=== PATIENT | male | born 1980 | race Caucasian/White ===

== ENCOUNTER 2018-02-01 07:30 | Inpatient (IN) ==
[~2018-02-01 07:30] MED LIST: ACETAMINOPHEN 500 MG TABLET PO ONE; DEXAMETHASONE 4 MG/ML INJECTION IVP ONE; FAMOTIDINE PB 20 MG/50 ML BAG IV ONE; LIDOCAINE 1% (10mg/ml) 2mL INJ PF SDV ID ONE; MELOXICAM 15 MG TABLET PO ONE; METOCLOPRAMIDE 10mg/2ml INJECTION IVP ONE; ONDANSETRON 4 MG/2 ML INJECTION IVP ONE; TRANEXAMIC ACID 1,000 MG in NS 100 ML IV ONE
[2018-02-01] MEDS ORDERED: EPINEPHrine PF 0.25 MG, BUPIVACAINE 0.25% PF 30 ML, KETOROLAC INJ 60 MG in NS 30 ML OPSITE ONE (08:00)
[2018-02-01 08:11] VITALS: BMI 34.3
[2018-02-01] MEDS ORDERED: CEFAZOLIN 1 G INJECTION IVP ONE (08:12)
[2018-02-01] MEDS: NOZIN NASAL SWAB NAS SCH ×3 (08:34→08:44)
[2018-02-01] MEDS: LR 1,000 ML IV SCH ×2 (08:35→12:01)
[2018-02-01] MEDS ORDERED: MIDAZOLAM 2mg/2ml INJECTION ONE (08:55)
[2018-02-01] MEDS ORDERED: FentaNYL 250 MCG/5 ML INJECTION ONE (08:55)
[2018-02-01] MEDS ORDERED: LIDOCAINE 2% (100mg/5mL) 5ml PF SDV ONE (08:58)
[2018-02-01] MEDS ORDERED: BUPIVACAINE 0.5% (5mg/ml) PF 30ml INJ SDV ONE (08:58)
[2018-02-01] MEDS ORDERED: PROPOFOL 20 ML ONE (09:23)
--- NOTE | 2018-02-01 09:47 | Anesthesia Preoperative Report ---
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 Proposed Procedure: Right knee hemiarthroplasty NPO Since Date: 02/01/18 NPO Since Time: 00:00 Allergies/Adverse Reactions: Allergies Allergy/AdvReac Type Severity Reaction Status Date / Time No Known Allergies Allergy Unknown Verified 02/01/18 08:25 - Vital Signs Vital Signs: Temperature 97.4 F 02/01/18 08:10 Pulse Rate 85 02/01/18 08:27 Respiratory Rate 15 02/01/18 08:10 Blood Pressure 139/90 H 02/01/18 08:10 Pulse Oximetry 97 02/01/18 08:10 Height and Weight: Height 1.93 m Weight 128 kg Body Mass Index 34.3 - Medications Inpatient Medications: Current Medications Epinephrine HCl 0.25 mg/Bupivacaine HCl 30 ml/Ketorolac Tromethamine 60 mg/ Sodium Chloride 62.25 mls @ 1 mls/hr OPSITE INTRAOP ONE PRN Reason: Protocol Stop: 02/03/18 22:14 Lactated Ringer's (Lactated Ringers) 1,000 mls @ 50 mls/hr IV .Q20H [facility] Last Admin: 02/01/18 08:35 Dose: 50 mls/hr Isopropyl Alcohol (Nozin Nasal Swab) 1 each MARIBEL Q1M ROXANNE Stop: 02/01/18 10:48 Last Admin: 02/01/18 08:44 Dose: 1 each Sodium Chloride (Iv Flush) 10 - 80 ml IV PRN PRN PRN Reason: Flushing Home Medications: Home Medications Medication Instructions Recorded Confirmed Type Lisinopril [Prinivil] 10 mg PO DAILY 01/25/18 02/01/18 History HydroCHLOROthiazide [Microzide] 1 cap PO WB 02/01/18 02/01/18 History Is Patient on Beta Kristopher?: No - Medical History Respiratory: Reports: Other (Smoker/Vaper) DENIES: Sleep Apnea Cardiovascular: Reports: Hypertension DENIES: Abnormal EKG, Angina, Arrhythmia, Congestive Heart Failure, Coronary Artery Disease, Heart Murmur, Hypotension, Myocardial Infarction, Rheumatic Fever, Valvular Heart Disease, Other Gastrointestional: Reports: Other (constipation) Neuro/Musculoskeletal: Reports: HX.MS.OSAR (BILAT KNEES) Renal/Endocrine: DENIES: Diabetes Mellitus Type 1, Diabetes Mellitus Type 2, Renal Failure, Dialysis, Thyroid Disease, Weight Loss, Weight Gain, Other Other History: DENIES: Anesthesia Reactions, Now, Blood Transfusions, Chemotherapy , Cancer, Hemophilia, Malignant Hyperthermia, Sickle Cell Disease, Other - Surgical History HEENT Surgeries: Reports: Oral Surgery (WISDOM TEETH) GI Surgery/Treatments: Reports: Hernia Repair (inguinal) Surgery/Treatment: DENIES: Dialysis Musculoskeletal Surgery/Tx: Reports: Knee Arthroscopy (left knee) Anesthesia Reactions: None Hx Family Anesthesia Reaction: No History of Motion Sickness: No - Social History Smoking Status: Former smoker Substance Use Type: does not use Alcohol Intake Frequency: holidays/special occasions only - Pertinent Findings EKG: Sinus Rhythm - Physical Exam Respiratory Exam: Present: lungs clear Cardiovascular Exam: Present: regular rate and rhythm - Airway Assessment Mallampati Score: II TMD: 3 Fingerbreadths Neck Extension: good Overall Assessment: no airway concerns - ASA ASA Score: 2 - Plan Anesthesia: General Inhalation Gases - Discussion Discussion: Discussed risks/options/alternatives of anesthesia and questions answered. Patient consents. Nursing pain assessment noted. Present for Discussion: family member Attestation Statement: Prior to the delivery of any anesthetic medication, I examined the patient, developed the plan, obtained the patient's consent and discussed the risk and benefits of the procedure with the patient/guardian. - Additional Information Seen by Anesthesia: Yes
[2018-02-01] MEDS ORDERED: VANCOMYCIN 1,000 MG INJECTION ONE (10:05)
[2018-02-01] MEDS ORDERED: SALINE FLUSH 10ml SYRINGE IV PRN (10:34)
[2018-02-01] MEDS ORDERED: PHENYLEPHRINE INJ 10 MG/ML VIAL IV ONE (10:40)
[2018-02-01] MEDS ORDERED: PROPOFOL 500 MG/50 ML VIAL ONE ×3 (10:41→10:57)
[2018-02-01] MEDS ORDERED: SALINE FLUSH 10ml SYRINGE ONE (10:49)
[2018-02-01] MEDS ORDERED: KETAMINE 500 MG/10 ML INJECTION ONE (10:54)
[2018-02-01] MEDS ORDERED: VANCOMYCIN 1,000 MG INJECTION IAR ONE (11:00)
--- NOTE | 2018-02-01 12:28 | Anesthesia Procedure Note ---
Peripheral Nerve Blockade - Procedure Physician: Morris Duffy MD Date: 02/01/18 Surgical Procedure: Right patelle and femoral replacement Discussion: Discussed risks/options/alternatives of anesthesia and questions answered. Patient consents. Nursing pain assessment noted. Block Start: 12:23 Block Stop: 12:25 Blocked Employed: Adductor Canal, Single Injection Indication: Post-Operative Pain Approach: Right Side Confirmed Position: Supine Patient: Consent, Risks/Benefits Discussed, Informed, Post Block Act. Discussed IV Sedation: No Initial Vital Signs: Temperature 97.4 F 02/01/18 08:10 Temperature Source Oral 02/01/18 08:10 Pulse Rate 93 02/01/18 08:10 Respiratory Rate 15 02/01/18 08:10 Blood Pressure 139/90 H 02/01/18 08:10 Blood Pressure Mean 106 02/01/18 08:10 Blood Pressure Position Sitting 02/01/18 08:10 Pulse Oximetry 97 02/01/18 08:10 Oxygen Delivery Method 02/01/18 08:10 Post Vital Signs: Temperature 97.5 F 02/01/18 12:17 Pulse Rate 101 H 02/01/18 12:17 Respiratory Rate 16 02/01/18 12:17 Blood Pressure 110/50 02/01/18 12:17 Pulse Oximetry 98 02/01/18 12:17 Initial Pain Pain Score: 0 Post Block Pain Score: 0 Prep: Chlorhexadine/ETOH Ultrasound Used?: Yes - Injectate Bupivacaine (%): 0.5 Bupivacaine (mL): 25 Was Epi 1:200,000 Used?: No Injection: Injection made incrementally with constant monitoring and aspiration every ml
--- NOTE | 2018-02-01 12:51 | XRay Report ---
Indication: postoperative image PROCEDURE: XR knee RT 2V: Encounter: Initial Comparison: Right knee MRI dated December 29, 2017 Findings: Interval postoperative change with placement of a trochlear groove prosthesis. No evidence of hardware failure. Overlying material obscuring fine bony detail. No acute fracture. No retained radiopaque surgical instruments or sponges. Impression: Postoperative changes as above. .
--- NOTE | 2018-02-01 12:53 | Anesthesia Postoperative Note ---
- Date and Time Date: 02/01/18 Time: 12:53 - Status Patient Participated in Evaluation: Patient Participated in Person Vital Signs: Temperature 97.5 F 02/01/18 12:17 Pulse Rate 101 H 02/01/18 12:17 Respiratory Rate 16 02/01/18 12:17 Blood Pressure 110/50 02/01/18 12:17 Pulse Oximetry 98 02/01/18 12:17 Respiratory Function: Airway Patent Cardiovascular Function: Regular Pulse EKG: Sinus Rhythm EKG Ectopy: Bundle Branch Block Mental Status: Alert and Oriented Pain Intensity: 0 Hydration: IV Infusing Complications During Recover: None Apparent - Follow-Up Instructions Instructions: Per Surgeon
[2018-02-01] MEDS ORDERED: ACETAMINOPHEN 325 MG TABLET PO SCH (13:07)
[2018-02-01] MEDS ORDERED: DiphenhydrAMINE 50 MG/ML INJECTION IVP PRN (13:07)
[2018-02-01] MEDS ORDERED: LORazepam 1 MG TABLET PO PRN (13:07)
[2018-02-01] MEDS ORDERED: NS 1,000 ML IV SCH (13:07)
[2018-02-01] MEDS ORDERED: Oxycodone *IR* 5 MG TABLET PO PRN (13:07)
[2018-02-01] MEDS ORDERED: ONDANSETRON 4 MG/2 ML INJECTION IVP PRN (13:07)
[2018-02-01] MEDS ORDERED: NOZIN NASAL SWAB NAS ONE (13:07)
[2018-02-01] MEDS ORDERED: DiphenhydrAMINE 25 MG CAPSULE PO PRN (13:07)
[2018-02-01] MEDS ORDERED: INFLUENZA VAC QIV 2017-18 (Fluarix*)(>=3yo) 0.5ml IM ONE (13:17)
[2018-02-01 13:35] VITALS: TEMP 97.6
[2018-02-01] MEDS ORDERED: NOZIN NASAL SWAB NAS SCH (14:00)
[2018-02-01 14:53] VITALS: RESP 20
[2018-02-01 16:04] VITALS: BP 156/77; PULSE 109; O2SAT 94
[2018-02-01] MEDS ORDERED: CEFAZOLIN 3 G in NS 100 ML IV SCH (18:00)
[2018-02-01] MEDS ORDERED: DOCUSATE SODIUM 100 MG CAPSULE PO SCH (21:00)
[2018-02-01] MEDS ORDERED: SENNOSIDES 8.6 MG TABLET PO SCH (21:00)
[2018-02-01] MEDS ORDERED: NAPROXEN 220 MG TABLET PO SCH (21:00)
[2018-02-01] MEDS ORDERED: ASPIRIN *EC* 81 MG TABLET PO SCH (21:00)
--- NOTE | 2018-02-02 08:30 | Operative Note ---
DATE OF PROCEDURE: 02/01/2018 PREOPERATIVE DIAGNOSIS Right knee patellofemoral osteoarthritis. POSTOPERATIVE DIAGNOSIS Right knee patellofemoral osteoarthritis. PROCEDURE Right knee patellofemoral replacement. SURGEON: Morris Duffy MD ASSIST: Silvina Brennan APRN COMPLICATIONS: None. ANESTHESIA: Spinal. DESCRIPTION OF PROCEDURE Mr. Antunez and his right knee were identified and marked in the preoperative holding area. He was brought back to the operating suite and placed supine on the operating table after spinal anesthetic was administered. The right lower extremity was then prepped and draped in my normal sterile fashion. Time-out was performed. An anterior midline incision was made followed a medial parapatellar arthrotomy. The patellofemoral joint was evaluated. There was considerable grade 2 and 3 damage to the trochlear cartilage centrally. There was corresponding defect on the patella more inferiorly with abundant fraying. The remainder of the knee that was visualized was free of defects. Fat pad was in place and some of it was removed for visualization purposes. A guide was placed in the trochlea followed by a guidepin. We then measured with throwing stars and picked a 5 x 7 femoral component. We then drilled for this and placed the double-[place] guide in place. We then drilled both the superior and inferior circles for this. This was followed with a trial component which felt good. We then ensured the component was not too proud, which it was not. I then placed a guidewire for the screw and we drilled and tapped for the screw. The screw was then placed and then we left the femur and moved to the patella. The patella was sized at a 30. The trial was held in place while we drilled a guidepin centrally and then we overreamed over this guidepin so that the patellar button would inlay, which it did nicely. We then prepared the bone for cementing, and the patellar component which was a [place] 30 mm component was cemented into place. Once it had cured, we moved back to the trochlea. Irrigation was performed and then a final 5 x 7 trochlear implant was placed. It seated well and, again, it was not proud either medially or laterally. The knee was taken through a range of motion and the patella tracked well without any signs of maltracking. After another thorough irrigation, the capsulotomy was repaired with #1 Vicryl. The subcutaneous tissue was closed with 2-0 Vicryl followed by a running 2-0 Monoderm in the subcuticular layer followed by a sterile dressing. The patient was then taken back to the recovery room under the care of Anesthesia. He tolerated the procedure well. There were no complications. SARY
[2018-02-02] MEDS ORDERED: LISINOPRIL 10 MG TABLET PO SCH (09:00)
[2018-02-02] MEDS ORDERED: POLYETHYL GLYCOL 3350 17gm PACKET PO SCH (09:00)
[2018-02-02] MEDS ORDERED: SENNOSIDES 8.6 MG TABLET PO PRN (12:16)
[2018-02-03] MEDS ORDERED: BISACODYL 10 MG SUPPOSITORY RECTALLY SCH (20:00)
== END 2018-02-01 16:36 | disposition home or self-care (01) | DRG 517 ==
LOC: NMC.PERIOP 07:57 → SRG 13:06
PROVIDERS: ADMIT Orthopaedic Surgery; ATTEND Orthopaedic Surgery